=== PATIENT | male | born 2000 | race African-American/Black ===

== ENCOUNTER 2022-05-29 03:01 | Emergency (ER) | payer MEDICAID, SELFPAY ==
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
[2022-05-29 03:09] VITALS: BP 128/80; PULSE 102; RESP 16; O2SAT 100; BMI 24.1
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
[2022-05-29] MEDS: Acetaminophen 325 MG TABLET 650 MG PO (03:32)
[2022-05-29] MEDS: Lidocaine 4 % Cream KIT 1 APPL TOPICAL (03:32)
[2022-05-29] MEDS: Tetracaine HCl/PF 0.5% Oph Sol 4 ML DROPS 1 DROP EYE-LEFT (03:34)
[2022-05-29] MEDS: Fluorescein Sodium STRIP 1 STRIP EYE-LEFT (03:34)
[2022-05-29] MEDS: Lidocaine HCl 1 % MPF 5 ML VIAL SUBCUT (04:02)
--- NOTE | 2022-05-29 04:55 | PC.NURSE ---
nurse discharge planner into chart to document additional lidocaine provided to MD sevilla for lac repair and found erythromycin ointment on NOV. Pt had no ointment applied prior to discharge, instructions regarding home use was provided to the pt and his father
== END 2022-05-29 04:45 | disposition home or self-care (01) ==
PROVIDERS: Emergency Provider Emergency Medicine
DX: S01.112A Laceration without foreign body of left eyelid and periocular area, initial encounter (principal); S10.91XA Abrasion of unspecified part of neck, initial encounter; S20.313A Abrasion of bilateral front wall of thorax, initial encounter; R51.9 Headache, unspecified; R40.2410 Glasgow coma scale score 13-15, unspecified time; Y04.2XXA Assault by strike against or bumped into by another person, initial encounter; Y93.9 Activity, unspecified; Y92.9 Unspecified place or not applicable; Y99.9 Unspecified external cause status; Z79.899 Other long term (current) drug therapy
CPT/HCPCS: 12011; 70450; 70486; 99284